=== PATIENT | female | born 2000 | race American Indian/Alaskan Native ===

== ENCOUNTER 2021-01-23 13:26 | Emergency (ER) | payer SELFPAY ==
[2021-01-23 13:38] VITALS: BP 135/67; PULSE 85; RESP 15; TEMP 36.9; O2SAT 100; BMI 30.9
--- NOTE | 2021-01-23 13:42 | DI.US.S_ITS ---
PROCEDURE: US PELVIC COMPLETE INDICATIONS: FIVE WEEKS - BLEEDING AND CRAMPING TECHNIQUE: Real-time scanning was performed of the pelvic organs, with image documentation. Additional endovaginal scanning was necessary due to incomplete visualization of the adnexal and endometrial structures by transabdominal scanning. COMPARISON: None. FINDINGS: Uterus: Uterus is normal in size at 8.0 x 4.9 x 3.6 cm. Uterus is retroverted. The endometrium measures 12 mm in combined thickness. No currently visualized intrauterine gestational sac. Ovaries: Right ovary measures 4.5 x 2.1 x 2.7 centimeter. Left ovary measures 4.8 x 2.2 x 1.9 centimeter. Other: No pathologic free abdominal or pelvic fluid. IMPRESSION: No currently visualized intrauterine gestational or findings suggestive of ectopic . Dictated by: Cleveland Nelson M.D. on 01/23/2021 at 23:24 Approved by: Cleveland Nelson M.D. on 01/23/2021 at 23:26
[2021-01-23 14:07] LABS: Bacteria Urine Few (2-10); Culture Indicated Urine Cult Not Indicated; RBC Urine 30-100/HPF (0-5/HPF); Squamous Epithelial Cell Urine 0-1 /HPF (0-5/HPF); WBC Urine 0-1/HPF (0-5/HPF)
--- NOTE | 2021-01-23 14:22 | ED.FEMALEGU ---
HPI - Female Genitourinary General Chief complaint: Vaginal Bleeding Stated complaint: 5wks preg, thinks having miscarriage Time Seen by Provider: 01/23/21 13:40 Source: patient Mode of arrival: Ambulatory Limitations: no limitations History of Present Illness HPI Narrative: 21F nonsmoker with noncontributory medical history presents with 12 hours of mild suprapubic cramping and minimal vaginal bleeding. She is a at about 5 weeks. She denies any injury is had no fever or chills. She is not dizzy nor weak or lightheaded. She states her bleeding is very minimal and certainly not enough to saturate pad. [place] and has yet to establish OB care. She has had no chest pain or shortness of breath, she denies any abdominal pain, nausea or vomiting, she is otherwise well and free of complaint MD Complaint: vaginal bleeding and pelvic pain Onset (ago): hour(s) Location: suprapubic Severity: mild Quality: Aching Duration: intermittent Relieving factors: none Exacerbating factors: none Patient : Yes Related Data Allergies Allergy/AdvReac Type Severity Reaction Status Date / Time No Known Drug Allergies Allergy Verified 01/23/21 13:39 Review of Systems Constitutional Constitutional: Denies chills, Denies fatigue, Denies fever(s), Denies frequent falls, Denies lethargy and Denies weakness Eyes Eyes: Denies change in vision, Denies eye discharge, Denies irritation and Denies loss of vision ENT Ears, Nose, Mouth, and Throat: Denies change in voice, Denies dizziness, Denies neck pain, Denies sore throat and Denies throat swelling Cardiovascular Cardiovascular: Denies chest pain, Denies irregular heart rhythm, Denies lightheadedness, Denies palpitations, Denies dyspnea, Denies dyspnea on exertion and Denies orthopnea Respiratory Respiratory: Denies cough, Denies dyspnea, Denies dyspnea on exertion and Denies wheezing Gastrointestinal Gastrointestinal: Denies abdominal pain, Denies change in bowel habits, Denies diarrhea, Denies nausea and Denies vomiting Genitourinary Genitourinary: Reports abnormal vaginal bleeding and Reports pelvic pain Musculoskeletal Musculoskeletal: Denies neck pain and Denies numbness Integumentary/Breasts Skin/Breast: Denies pruritus, Denies erythema, Denies rash and Denies wounds Neurologic Neurologic: Denies behavioral changes, Denies confusion, Denies dizziness, Denies frequent falls, Denies loss of vision, Denies numbness and Denies weakness Psychiatric Psychiatric: Denies anxiety, Denies behavioral changes, Denies confusion, Denies depression, Denies homicidal ideation and Denies suicidal ideation Endocrine Endocrine: Denies fatigue, Denies flushing and Denies palpitations Hematologic/Lymphatic Hematologic/Lymphatic: Denies easy bruising Allergic/Immunologic Allergic/Immunologic: Denies urticaria, Denies throat swelling and Denies wheezing Patient History alcohol intake frequency: holidays/special occasions only Substance Use Type: does not use Exam Narrative Exam Narrative: GENERAL: [21] year old patient appears stated age. Well-nourished, well-developed patient, in mild distress. HEAD: Atraumatic. Normocephalic. EYES: Pupils equal round and reactive. Extraocular motions intact. No scleral icterus. No injection or drainage. ENT: Nose without bleeding, purulent drainage. Throat without erythema, tonsillar hypertrophy or exudate. Airway patent. NECK: Trachea midline. Non tender CARDIOVASCULAR: Regular rate and rhythm without murmurs, gallops, or rubs. RESPIRATORY: Clear to auscultation. Breath sounds equal bilaterally. No wheezes, rales, or rhonchi. GASTROINTESTINAL: Abdomen soft, non-tender, nondistended. EXTREMITIES: No edema or joint tenderness. BACK: Nontender without deformity or crepitance. No flank tenderness. NEURO: AOx3. SKIN: No rash or erythema of visible areas Initial Vital Signs Initial Vital Signs: Vital Signs Temperature 98.4 F 01/23/21 13:38 Pulse Rate 85 01/23/21 13:38 Respiratory Rate 15 01/23/21 13:38 Blood Pressure 135/67 01/23/21 13:38 Pulse Oximetry 100 01/23/21 13:38 Course Orders Ordered: ED Orders 01/23/21 13:42 US pelvic complete Stat 01/23/21 13:45 Urine Microscopic Stat 01/23/21 14:10 ABO RH Type Stat Complete Blood Count AUTO DIFF Stat Comprehensive Metabolic Panel Stat HCG Quantitative /Beta subunit Stat Vital Signs Vital signs: Vital Signs - 8 hr 01/23/21 13:38 01/23/21 15:11 Temperature 98.4 F Pulse Rate 85 89 Respiratory Rate 15 Blood Pressure 135/67 121/76 Pulse Oximetry 100 95 MDM - Female Genitourinary Lab Data Result diagrams: 01/23/21 14:10 01/23/21 14:10 Labs: Lab Results 01/23/21 01/23/21 01/23/21 Range/Units 13:45 14:10 14:10 WBC 8.8 (4.5-11.0) X10^3/uL RBC 4.35 (4.0-5.2) X10^6/uL Hgb 12.9 (12.0-16.0) g/dL Hct 39.0 (36-46) % MCV 89.5 (80-100) fL MCH 29.6 (26-34) PG MCHC 33.1 (30-36) % RDW 12.7 (11.6-14.8) % Plt Count 265 (150-400) X10^3/uL Neut % (Auto) 71.4 (50-75) % Lymph % (Auto) 21.1 L (25-40) % [place] % (Auto) 6.0 (3-14) % Eos % (Auto) 0.9 L (2-4) % Baso % (Auto) 0.6 (0-2) % Neut # (Auto) 6300 (2368-1074) /uL Lymph # (Auto) 1900 (2105-2375) /uL [place] # (Auto) 500 (0-900) /uL Eos # (Auto) 100 (0-450) /uL Baso # (Auto) 100 (0-100) /uL Sodium 140 (137-145) mmol/L Potassium 4.2 (3.4-5.1) mmol/L Chloride 106 (98-107) mmol/L Carbon Dioxide 26 (22-32) mmol/L BUN 12 (7-17) mg/dL Creatinine 0.71 (0.52-1.04) mg/dL Estimated GFR > 60.0 (>60) mL/min BUN/Creatinine Ratio 16.9 (6-22) Glucose 98 (70-100) mg/dL Calcium 9.1 (8.4-10.2) mg/dL Total Bilirubin 0.2 (0.2-1.3) mg/dL AST 28 (14-36) IU/L ALT 17 (<35) IU/L Alkaline Phosphatase 43 (38-126) U/L Total Protein 7.1 (6.3-8.2) g/dL Albumin 4.2 (3.5-5.0) g/dL Globulin 2.9 (1.7-4.1) g/dL Albumin/Globulin Ratio 1.4 (1.0-2.8) HCG, Quant 4.6 mIU/mL Urine RBC 30-100/hpf H (0-5/HPF) Urine WBC 0-1/hpf (0-5/HPF) Ur Squamous Epith Cells 0-1 /hpf (0-5/HPF) Urine Bacteria Few (2-10) H (None) Ur Culture Indicated? Cult not indicated Blood Type 01/23/21 Range/Units 14:10 WBC (4.5-11.0) X10^3/uL RBC (4.0-5.2) X10^6/uL Hgb (12.0-16.0) g/dL Hct (36-46) % MCV (80-100) fL MCH (26-34) PG MCHC (30-36) % RDW (11.6-14.8) % Plt Count (150-400) X10^3/uL Neut % (Auto) (50-75) % Lymph % (Auto) (25-40) % [place] % (Auto) (3-14) % Eos % (Auto) (2-4) % Baso % (Auto) (0-2) % Neut # (Auto) (0021-8011) /uL Lymph # (Auto) (0073-9018) /uL [place] # (Auto) (0-900) /uL Eos # (Auto) (0-450) /uL Baso # (Auto) (0-100) /uL Sodium (137-145) mmol/L Potassium (3.4-5.1) mmol/L Chloride (98-107) mmol/L Carbon Dioxide (22-32) mmol/L BUN (7-17) mg/dL Creatinine (0.52-1.04) mg/dL Estimated GFR (>60) mL/min BUN/Creatinine Ratio (6-22) Glucose (70-100) mg/dL Calcium (8.4-10.2) mg/dL Total Bilirubin (0.2-1.3) mg/dL AST (14-36) IU/L ALT (<35) IU/L Alkaline Phosphatase (38-126) U/L Total Protein (6.3-8.2) g/dL Albumin (3.5-5.0) g/dL Globulin (1.7-4.1) g/dL Albumin/Globulin Ratio (1.0-2.8) HCG, Quant mIU/mL Urine RBC (0-5/HPF) Urine WBC (0-5/HPF) Ur Squamous Epith Cells (0-5/HPF) Urine Bacteria (None) Ur Culture Indicated? Blood Type O Positive Point of Care Testing Test Results Negative Urine Dip Bedside Urine Glucose Negative Bedside Urine Bilirubin - Negative Bedside Urine Ketone - Negative Urine Specific [place] 1.015 Bedside Urine Occult Blood +++ Bedside Urine pH 8.0 Bedside Urine Protein - Negative Bedside Urine Urobilinogen - Negative Bedside Urine Nitrite - Negative Bedside Urine Leukocytes - Negative Esterase Imaging Data US - abdomen: Radiologist's Impression: Lubna Reynolds Alejandro Kemp 21 F 2000 [place], [place] [address]Ultrasound ReportSigned Patient: Lubna Reynolds LizethR#: [id number]: [id number]:[id number]/Sex: 21 / FDate of Service: 01/23/21Loc: EDAccession Number: [id number] Procedure: US pelvic complete Ordering Provider: Sridhar Ashley D.O. PROCEDURE: US PELVIC COMPLETE INDICATIONS: FIVE WEEKS - BLEEDING AND CRAMPING TECHNIQUE: Real-time scanning was performed of the pelvic organs, with image documentation. Additional endovaginal scanning was necessary due to incomplete visualization of the adnexal and endometrial structures by transabdominal scanning. COMPARISON: None. FINDINGS: Uterus: Uterus is normal in size at 8.0 x 4.9 x 3.6 cm. Uterus is retroverted. The endometrium measures 12 mm in combined thickness. No currently visualized intrauterine gestational sac. Ovaries: Right ovary measures 4.5 x 2.1 x 2.7 centimeter. Left ovary measures 4.8 x 2.2 x 1.9 centimeter. Other: No pathologic free abdominal or pelvic fluid. IMPRESSION: No currently visualized intrauterine gestational or findings suggestive of ectopic . Dictated by: Cleveland Nelson M.D. on 01/23/2021 at 23:24 Approved by: Cleveland Nelson M.D. on 01/23/2021 at 23:26 MDM Narrative Medical decision making narrative: Patient with very minimal symptoms, no ongoing pain or bleeding. Very low HCG at this point raising the question of a possible missed miscarriage. Extensive discussion with the patient regarding the importance of follow-up, trending her labs and possibly repeating ultrasound. Return precautions given and questions answered to her apparent satisfaction Discharge Plan Departure Patient Disposition: Home Clinical Impression: Vaginal bleeding Instructions: DI for Vaginal Bleeding During Activity Restrictions/Additional Instructions: *You have been diagnosed with [we vaginal bleeding during ] *What to do: *Take medications as directed *Follow up with your primary care provider in 2-3 days, call for an appointment. Let them know you were seen in the Emergency Department and that we ask that you be seen in follow up *Your BetaHCG ( number) is very low, I would expect it to be higher than this 5 weeks into a . *Return to ER if you should have any new, worsening or concerning symptoms, such as [increased pain, fever greater than 101 F, bleeding through more than 1 pad per hour] Referrals: Elisha Watson DO [Physician] -
[2021-01-23 14:39] LABS: Add Manual Diff / Slide Review NO; Basophils Absolute Auto 100 /uL (0-100); Basophils Percent Auto 0.6 % (0-2); Eosinophils Absolute Auto 100 /uL (0-450); Eosinophils Percent Auto 0.9 % (2-4); Hemoglobin 12.9 g/dL (12.0-16.0); Lymphocytes Absolute Auto 1900 /uL (1100-4500); Lymphocytes Percent Auto 21.1 % (25-40); Mean Corpuscular HGB Conc 33.1 % (30-36); Mean Corpuscular Hemoglobin 29.6 PG (26-34); Mean Corpuscular Volume 89.5 fL (80-100); Monocytes Absolute Auto 500 /uL (0-900); Neutrophils Absolute Auto 6300 /uL (1500-7000); Neutrophils Percent Auto 71.4 % (50-75); Platelet Count 265 X10^3/uL (150-400); Red Blood Cell Count 4.35 X10^6/uL (4.0-5.2); Red Cell Distribution Width 12.7 % (11.6-14.8); White Blood Cell Count 8.8 X10^3/uL (4.5-11.0)
[2021-01-23 14:56] LABS: HCG Quantitative /Beta subunit 4.6 mIU/mL; HEMOLYSIS < 15 (0-50)
[2021-01-23 15:11] VITALS: BP 121/76; PULSE 89; O2SAT 95
[2021-01-23 15:49] LABS: Alanine Aminotransferase 17 IU/L (<35); Albumin 4.2 g/dL (3.5-5.0); Albumin Globulin Ratio 1.4 (1.0-2.8); Alkaline Phosphatase 43 U/L (38-126); Aspartate Aminotransferase 28 IU/L (14-36); BUN Creatinine Ratio 16.9 (6-22); Bilirubin Total 0.2 mg/dL (0.2-1.3); Blood Urea Nitrogen 12 mg/dL (7-17); Calcium 9.1 mg/dL (8.4-10.2); Carbon Dioxide 26 mmol/L (22-32); Chloride 106 mmol/L (98-107); Estimated Glomerular Filt Rate > 60.0 mL/min (>60); Globulin 2.9 g/dL (1.7-4.1); Glucose 98 mg/dL (70-100); Potassium 4.2 mmol/L (3.4-5.1); Sodium 140 mmol/L (137-145); Total Protein 7.1 g/dL (6.3-8.2)
== END 2021-01-23 15:12 | disposition home or self-care (01) ==
PROVIDERS: Emergency Provider Emergency Medicine
DX: O20.9 Hemorrhage in early pregnancy, unspecified (principal); Z3A.01 Less than 8 weeks gestation of pregnancy
CPT/HCPCS: 36415; 76830; 76856; 80053; 81003; 81015; 81025; 84702; 85025; 86900; 86901; 99283; 99284

== ENCOUNTER → 2021-06-12 16:25 | Outpatient (CLI) | payer SELFPAY ==
[2021-06-12 17:36] LABS: Add Manual Diff / Slide Review NO; Basophils Absolute Auto 0 /uL (0-100); Basophils Percent Auto 0.4 % (0-2); Eosinophils Absolute Auto 100 /uL (0-450); Eosinophils Percent Auto 0.7 % (2-4); Hematocrit 38.2 % (36-46); Lymphocytes Absolute Auto 2300 /uL (1100-4500); Mean Corpuscular HGB Conc 34.1 % (30-36); Mean Corpuscular Hemoglobin 30.3 PG (26-34); Mean Corpuscular Volume 88.7 fL (80-100); Monocytes Absolute Auto 600 /uL (0-900); Monocytes Percent Auto 6.3 % (3-14); Neutrophils Absolute Auto 7100 /uL (1500-7000); Neutrophils Percent Auto 69.6 % (50-75); Platelet Count 259 X10^3/uL (150-400); White Blood Cell Count 10.2 X10^3/uL (4.5-11.0)
[2021-06-13 05:36] LABS: RPR Screen Non Reactive (Non Reactive)
[2021-06-13 09:38] LABS: Varicella IgG Antibody <135 index (Immune >165)
[2021-06-15 15:35] LABS: Hepatitis B Surface Antigen NEGATIVE s/c (NEGATIVE); Rubella Antibody IgG 10.5 IU/mL (>15)
[2021-06-15 15:57] LABS: HIV 1 & 2 Ab/Ag 4th Gen Combo NEGATIVE (NEGATIVE); Hep C Virus Ab w/Reflex Quant NEGATIVE s/c (NEGATIVE)
== END ==
PROVIDERS: Referring Provider Specialist; Visit Provider Specialist
DX: Z34.81 Encounter for supervision of other normal pregnancy, first trimester (principal)
CPT/HCPCS: 36415; 80055; 86787; 86803; 86850; 86900; 86901; 87389

== ENCOUNTER → 2021-06-18 13:00 | Outpatient (CLI) | payer SELFPAY ==
[2021-06-18 14:41] LABS: HCG Quantitative /Beta subunit 78979 mIU/mL
== END ==
PROVIDERS: Referring Provider Specialist; Visit Provider Specialist
DX: O20.9 Hemorrhage in early pregnancy, unspecified (principal)
CPT/HCPCS: 36415; 84702

== ENCOUNTER → 2021-06-20 14:02 | Outpatient (CLI) | payer SELFPAY ==
[2021-06-20 15:20] LABS: HCG Quantitative /Beta subunit 79346 mIU/mL
== END ==
PROVIDERS: PCP Specialist; Referring Provider Specialist; Visit Provider Specialist
DX: O20.9 Hemorrhage in early pregnancy, unspecified (principal)
CPT/HCPCS: 36415; 84702

== ENCOUNTER → 2021-06-25 15:47 | Outpatient (CLI) | payer SELFPAY | PROVIDERS: PCP Specialist; Referring Provider Specialist; Visit Provider Specialist | DX: Z34.90 Encounter for supervision of normal pregnancy, unspecified, unspecified trimester (principal) | CPT/HCPCS: 36415 ==